=== PATIENT | female | born 1950 | race Caucasian/White ===

== ENCOUNTER 2017-03-02 10:20 | Emergency (ER) | payer BC | END 2017-03-02 12:02 | disposition home or self-care (01) | LOC: ERS 10:20 | DX: G47.00 Insomnia, unspecified (principal); E03.9 Hypothyroidism, unspecified; Z79.899 Other long term (current) drug therapy | CPT/HCPCS: 99283 ==

== ENCOUNTER 2017-04-02 13:15 | Outpatient (CLI) | payer BC ==
--- NOTE | 2017-04-02 13:47 | ULT ---
VENOUS DOPPLER ULTRASOUND OF THE LEFT LOWER EXTREMITY: Date: 04/02/17 HISTORY: Left calf pain. TECHNIQUE: Pringle scale ultrasound with color flow and spectral Doppler imaging of the deep venous systems of the left lower extremity is performed. FINDINGS: There is good flow, compression, and augmentation noted in the left common femoral, femoral, deep fem oral, popliteal, posterior tibial, and greater saphenous veins. IMPRESSION: No evidence of deep venous thrombosis in the left lower extremity. POS: [facility]
== END 2017-04-02 13:16 | disposition home or self-care (01) ==
LOC: ULT 13:15
PROVIDERS: ATTEND Family Medicine
DX: M79.669 Pain in unspecified lower leg (principal)

== ENCOUNTER 2017-04-09 13:28 | Outpatient (CLI) | payer BC ==
--- NOTE | 2017-04-09 15:06 | MRI ---
MRI BRAIN WITHOUT CONTRAST: HISTORY: Mental status change. FINDINGS: No restricted diffusion is seen. No evidence of infarct, hemorrhage, midline shift, or abnormal extr aaxial fluid collections noted. There are a few foci of T2 prolongation in the periventricular white matter consistent with mild chronic small-vessel ischemic disease. The ventricular size is normal a nd the basilar cisterns patent. No blood products are seen on the gradient echo sequences. No tonsi llar herniation is seen. The visualized paranasal sinuses and mastoid air cells are well aerated. IMPRESSION: 1. No evidence of acute intracranial process. 2. Mild chronic small-vessel ischemic disease. POS: [facility]
== END 2017-04-09 13:29 | disposition home or self-care (01) ==
LOC: SCSMRI 13:28
PROVIDERS: ATTEND Family Medicine
DX: R41.82 Altered mental status, unspecified (principal); G93.89 Other specified disorders of brain
CPT/HCPCS: 70551

== ENCOUNTER 2017-09-03 14:40 | Outpatient (CLI) | payer BC | END 2017-09-03 14:41 | disposition home or self-care (01) | LOC: BICMAMMO 14:40 | PROVIDERS: ATTEND Student in an Organized Health Care Education/Training Program | DX: Z12.31 Encounter for screening mammogram for malignant neoplasm of breast (principal); Z80.3 Family history of malignant neoplasm of breast | CPT/HCPCS: 77063; 77067 ==

== ENCOUNTER 2019-02-23 15:29 | Outpatient (CLI) | payer OTHER ==
--- NOTE | 2019-02-23 16:24 | RAD ---
XR Wrist 3 Rt View STANDARD HISTORY: Injury, fall, right wrist pain FINDINGS: There fractures involving the distal radius and ulnar styloid. No significant displacement is seen.
--- NOTE | 2019-02-23 16:24 | RAD ---
XR Hand Rt 3 View STANDARD HISTORY: Fall, right hand pain FINDINGS: There fractures involving the distal radius and ulnar styloid. No significant displacement is seen.
== END 2019-02-23 15:30 | disposition home or self-care (01) ==
LOC: BICRAD 15:29
PROVIDERS: ATTEND Podiatrist Foot & Ankle Surgery
DX: S60.211A Contusion of right wrist, initial encounter (principal)

== ENCOUNTER 2019-02-24 10:54 | Outpatient (CLI) | payer OTHER ==
[2019-02-24] MEDS ORDERED: Iopamidol-370 76% 500 ML 1 ML ONE (15:37)
--- NOTE | 2019-02-28 08:47 | CT ---
CT CORONARY CALCIUM SCORE WITHOUT CONTRAST CTA OF THE CORONARY ARTERIES WITH IV CONTRAST AND 3D POSTPROCESSING: HISTORY: A 69-year-old female with chest pain, palpitations, dizziness. FINDINGS: No calcified plaque is noted. The total coronary artery calcium score is 0. There is good flow in t he coronary arteries with a right-sided dominance. No significant stenosis is noted in the left main , LAD, diagonals, LCX, RCA, and PDA. There is good flow in the ramus intermedius as well. The functional measurements are as follows: LVEF 33%. End-diastolic volume 66 mL. End-systolic volume 44 mL. Stroke volume 22 mL/minute. Cardiac output 1 liter per minute. There is global hypokinesis. The aorta is well opacified without aneurysm or dissection. The visual ized portions of the pulmonary arteries are well opacified without pulmonary embolism. No pleural or pericardial effusions were seen. The visualized lung elkins are unremarkable. IMPRESSION: 1. Total coronary calcium 0. 2. No evidence of obstructive coronary artery disease. 3. Left ventricular ejection fraction of 33%. POS: [facility]
== END 2019-02-24 10:55 | disposition home or self-care (01) ==
LOC: BICCT 10:54
PROVIDERS: ATTEND Internal Medicine Cardiovascular Disease
DX: R07.89 Other chest pain (principal)
CPT/HCPCS: 75574; 82565; Q9967

== ENCOUNTER 2019-11-16 11:19 | Outpatient (CLI) | payer OTHER ==
--- NOTE | 2019-11-16 12:27 | RAD ---
EXAM: Chest 2 views: HISTORY: Chest pain COMPARISON: None. FINDINGS: There is a normal-sized cardiomediastinal silhouette. Biapical pleural thickening is seen. There is no evidence of consolidation, mass, or pleural effusion. No acute osseous abnormality. IMPRESSION: No evidence of acute cardiopulmonary disease
--- NOTE | 2019-12-05 13:20 | MMO ---
Bilateral MAMMO Bilat Screen [facility]. CLINICAL HISTORY: Patient is 69 years old and is seen for screening. The patient has no family history of breast cancer. The patient has no personal history of cancer. VIEWS: The views performed were: bilateral craniocaudal with tomosynthesis and bilateral mediolateral oblique with tomosynthesis. FILMS COMPARED: The present examination has been compared to prior imaging studies performed at [facility] on 09/07/2018, at [facility] on 11/27/2015 and 09/03/2017, and at [facility] on 10/22/2014. This study has been interpreted with the assistance of computer-aided detection. MAMMOGRAM FINDINGS: There are scattered fibroglandular densities. There are no suspicious masses, suspicious calcifications, or new areas of architectural distortion. IMPRESSION: THERE IS NO MAMMOGRAPHIC EVIDENCE OF MALIGNANCY. A ROUTINE FOLLOW-UP MAMMOGRAM IN 1 YEAR IS RECOMMENDED. THE RESULTS OF THIS EXAM WERE SENT TO THE PATIENT. ACR BI-RADS Category 1 - Negative MAMMOGRAPHY NOTE: 1. A negative mammogram report should not delay a biopsy if a dominant of clinically suspicious mass is present. 2. Approximately 10% to 15% of breast cancers are not detected by mammography. 3. Adenosis and dense breasts may obscure an underlying neoplasm. Reported by: Pat HAWK Electonically Signed: [id number]
== END 2019-11-16 11:20 | disposition home or self-care (01) ==
LOC: BICMAMMO 11:19
PROVIDERS: ATTEND Physician Assistant
DX: Z12.31 Encounter for screening mammogram for malignant neoplasm of breast (principal); M54.6 Pain in thoracic spine
CPT/HCPCS: 71046; 77063; 77067

== ENCOUNTER 2020-09-12 10:43 | Outpatient (CLI) | payer MEDICARE | END 2020-09-12 10:44 | disposition home or self-care (01) | LOC: BICULT 10:43 | PROVIDERS: ATTEND Internal Medicine Gastroenterology | DX: K21.00 Gastro-esophageal reflux disease with esophagitis, without bleeding (principal); R11.0 Nausea | CPT/HCPCS: 93975 ==

== ENCOUNTER 2021-03-14 14:06 | Outpatient (CLI) | payer MEDICARE | END 2021-03-14 14:07 | disposition home or self-care (01) | LOC: BICMAMMO 14:06 | PROVIDERS: ATTEND Physician Assistant | DX: Z12.31 Encounter for screening mammogram for malignant neoplasm of breast (principal) | CPT/HCPCS: 77063; 77067 ==

== ENCOUNTER 2021-03-26 10:40 | Outpatient (CLI) | payer MEDICARE | END 2021-03-26 10:41 | disposition home or self-care (01) | LOC: MRI 10:40 | PROVIDERS: ATTEND Physician Assistant | DX: R51.9 Headache, unspecified (principal) | CPT/HCPCS: 70553 ==

== ENCOUNTER 2021-05-26 08:26 | Outpatient (CLI) | payer MEDICARE | END 2021-05-26 08:27 | disposition home or self-care (01) | LOC: NM 08:26 | PROVIDERS: ATTEND Physician Assistant Medical | DX: K21.9 Gastro-esophageal reflux disease without esophagitis (principal); K58.9 Irritable bowel syndrome, unspecified; R68.81 Early satiety; K44.9 Diaphragmatic hernia without obstruction or gangrene | CPT/HCPCS: 78264; A9541 ==

== ENCOUNTER 2021-05-30 13:36 | Outpatient (CLI) | payer MEDICARE | END 2021-05-30 13:37 | disposition home or self-care (01) | LOC: BICRAD 13:36 | PROVIDERS: ATTEND Internal Medicine Gastroenterology | DX: R11.2 Nausea with vomiting, unspecified (principal); K21.9 Gastro-esophageal reflux disease without esophagitis; R68.81 Early satiety | CPT/HCPCS: 74019 ==

== ENCOUNTER 2022-11-06 22:37 | Emergency (ER) | payer MEDICARE ==
[2022-11-07] MEDS ORDERED: Morphine 4 MG/ML VIAL ONE (00:17)
[2022-11-07] MEDS ORDERED: Ondansetron PF 4 MG/2 ML Vial ONE (00:17)
[2022-11-07] MEDS ORDERED: HYDROmorphone 0.5 MG/0.5 ML SYRINGE ONE (01:24)
== END 2022-11-07 08:46 ==
LOC: ERS 22:37
DX: S42.291A Other displaced fracture of upper end of right humerus, initial encounter for closed fracture (principal); I10 Essential (primary) hypertension; E03.9 Hypothyroidism, unspecified; W18.30XA Fall on same level, unspecified, initial encounter
CPT/HCPCS: 72125; J1170; J2270; J2405

== ENCOUNTER 2023-03-30 13:29 | Outpatient (CLI) | payer MEDICARE | END 2023-03-30 13:30 | disposition home or self-care (01) | LOC: BICCT 13:29 | PROVIDERS: ATTEND Orthopaedic Surgery | DX: S42.331A Displaced oblique fracture of shaft of humerus, right arm, initial encounter for closed fracture (principal); M85.821 Other specified disorders of bone density and structure, right upper arm ==

== ENCOUNTER 2023-04-20 11:20 | Outpatient (CLI) | payer MEDICARE | END 2023-04-20 11:21 | disposition home or self-care (01) | LOC: BICRAD 11:20 | PROVIDERS: ATTEND Physician Assistant | DX: R05.1 Acute cough (principal); S42.201K Unspecified fracture of upper end of right humerus, subsequent encounter for fracture with nonunion | CPT/HCPCS: 71046 ==

== ENCOUNTER 2023-12-29 11:45 | Outpatient (CLI) | payer MEDICARE | END 2023-12-29 11:46 | disposition home or self-care (01) | LOC: PET 11:45 | PROVIDERS: ATTEND Psychiatry & Neurology Neurology | DX: R41.3 Other amnesia (principal); F32.A Depression, unspecified | CPT/HCPCS: 78803; A9552 ==